=== PATIENT | female | born 1955 | race Caucasian/White ===

== ENCOUNTER 2016-06-24 10:26 | Emergency (ER) | payer OTHER ==
--- NOTE | 2016-06-24 10:50 | UCPHY ---
H & P Time Seen by Provider: 06/24/16 10:31 Patient Type: New HPI/ROS: Chief complaint. Finger laceration HPI. 61-year-old female was using a mandolin in the kitchen last night to slice sweet potatoes. She accidentally sliced the tip of her right index finger. Bleeding has been poorly controlled through the night. She did bring the tip of the finger pad with her in a Ziploc. No focal weakness or paresthesias. No sense of retained foreign body. She is right handed. She is current on her tetanus immunization ROS Constitutional. no fever/chills, no weakness Eyes. no problems with vision ENT. no sore throat, no nasal drainage Cardiovascular. no chest pain Respiratory. no shortness of breath, no cough Abdominal. no abdominal pain, no nausea/vomiting, no diarrhea . no problems urinating MS. no calf pain/swelling, no neck/back pain, no joint pain Skin. Laceration to right index finger Lymph. no swollen glands Neuro. no headache, no dizziness, no difficulty walking or with speech Past Medical/Surgical History: Healthy Social History: , nonsmoker, no alcohol Smoking Status: Never smoked Physical Exam: General Appearance: Alert well-developed female mild distress vital signs stable Eyes: Pupils equal and round no pallor or injection. ENT, Mouth: Mucous membranes are moist. Respiratory: There are no retractions, lungs are clear to auscultation. Cardiovascular: Regular rate and rhythm. Gastrointestinal: Abdomen is soft and nontender, no masses, bowel sounds normal. Neurological: Awake and alert, sensory and motor exams grossly normal. Skin: 3 x 4 mm avulsion laceration to pad of the right index finger. There is venous bleeding present. Distal motor vascular sensitivity intact Musculoskeletal: Neck is supple nontender. Extremities symmetrical, full range of motion. Psychiatric: Patient is oriented X 3, there is no agitation. Allergies/Adverse Reactions: guaifenesin [From Entex [place]] Allergy (Verified 06/24/16 10:32) Penicillins Allergy (Verified 06/24/16 10:32) phenylephrine [From Entex LA] Allergy (Verified 06/24/16 10:32) phenylpropanolamine [From Entex LA] Allergy (Verified 06/24/16 10:32) Sulfa (Sulfonamide Antibiotics) Allergy (Verified 06/24/16 10:32) Home Medications: Medication Instructions Recorded Evista 06/24/16 Lexapro 06/24/16 Wellbutrin Xl 06/24/16 MDM/Departure - MDM Procedures: Lat is applied to this Skin. The wound is then cleaned and Surgicel is placed. The wound is then dressed Medications Given: Discontinued Medications Tetracaine/Epinephrine/Lidocaine (Lets Soln Topical) 1 ea TP EDNOW ONE Stop: 06/24/16 10:55 Last Admin: 06/24/16 10:59 Dose: 1 ea ED Course/Re-evaluation: Re-evaluation patient is stable. Bleeding is controlled She and I discussed treatment plan including criteria for return and importance of follow-up further evaluation. She expresses understanding and agreement Differential Diagnosis: Avulsion type laceration. Nothing to sew. No evidence for retained foreign body. I considered infection likelihood of the wound - Depart Disposition: Home, Routine, Self-Care Clinical Impression: Laceration Condition: Good Instructions: Laceration Without Closure (ED) Additional Instructions: Leave the dressing with the Surgicel on for the next 24 hours. Soak the Surgicel off in warm water or a glass with have hydrogen peroxide half warm water. Apply antibiotic ointment twice daily and then a Band-Aid until healed. Return for signs of infection. You may shower and wash your hands while healing however avoid immersion in soapy dishwater until healed Referrals: AGUSTINA COLLINS [Other] - 2-3 days, if not improved - PQRS PQRS Measurement: 134: Depression screening and followup, PRIME MD-PHQ2 (12 years and older) Over the last 2 weeks, how often have you been bothered by any of the following problems? 1. Feeling down, depressed, or hopeless? 2. Little interest or pleasure in doing things? Patient answered no to both 1 and 2 130: Documentation of medications. Reviewed all patient medications, doses, route and frequency. 226: Do you smoke? No.
[2016-06-24] MEDS ORDERED: LETS SOLN TOPICAL 1 EA SYR TP ONE (10:54)
[2016-06-24 11:22] VITALS: BP 122/69; PULSE 60; RESP 16; TEMP 97.9; O2SAT 100
== END 2016-06-24 11:22 | disposition home or self-care (01) ==
LOC: CED 10:26
DX: S61.210A Laceration without foreign body of right index finger without damage to nail, initial encounter (principal); W27.4XXA Contact with kitchen utensil, initial encounter; Y93.G3 Activity, cooking and baking; Y92.000 Kitchen of unspecified non-institutional (private) residence as the place of occurrence of the external cause
CPT/HCPCS: 99203-PO; G0463-PO